=== PATIENT | female | born 1995 | race Hispanic/Latino ===

== ENCOUNTER 2020-02-06 13:12 | Emergency (ER) | payer BC ==
[2020-02-06 13:47] LABS: BASOPHILS % (AUTO) 0.3 % (0.0-5.0); EOSINOPHILS % (AUTO) 0.7 % (0.0-8.0); HEMATOCRIT 37.8 % (36-48); LYMPHOCYTES % (AUTO) 29.5 % (21.0-51.0); MEAN CORPUSCULAR HEMOGLOBIN 30.7 pg (27.0-33.0); MEAN CORPUSCULAR HGB CONC 33.3 g/dL (32.0-36.0); MEAN CORPUSCULAR VOLUME 92.2 fL (79-99); MONOCYTES % (AUTO) 6.9 % (3.0-13.0); NEUTROPHILS % (AUTO) 62.4 % (40.0-77.0); PLATELET COUNT (AUTO) 223 K/uL (130-400); RED CELL DISTRIBUTION WIDTH 12.1 % (11.0-15.5); WHITE BLOOD COUNT (AUTO) 5.8 K/uL (4.8-10.8)
[2020-02-06 13:52] LABS: CREATININE 0.5 mg/dL (0.5-1.5); POTASSIUM 3.4 mmol/L (3.5-5.1)
[2020-02-06 14:06] LABS: APPEARANCE,URINE Clear (CLEAR); BILIRUBIN,URINE Negative (NEGATIVE); COLOR,URINE Yellow (YELLOW); GLUCOSE, URINE (UA) Negative (NEGATIVE); KETONES,URINE 40 mg/dL (NEGATIVE); LEUKOCYTE ESTERASE ,URINE Negative (NEGATIVE); NITRATE,URINE Negative (NEGATIVE); OCCULT BLOOD,URINE Trace (NEGATIVE); PROTEIN,URINE Negative (NEGATIVE)
[2020-02-06 14:25] LABS: BACTERIA,URINE Few /HPF (None Seen); MUCUS,URINE Few LPF (None Seen); RBC,URINE None Seen /HPF (0-1); SQUAMOUS EPITHELIAL CELL,UR 0-2 /HPF (0-2); WBC,URINE 0-1 /HPF (0-1)
[2020-02-06 14:29] LABS: BILIRUBIN,DIRECT 0.2 mg/dL (0.0-0.3); BILIRUBIN,TOTAL 0.5 mg/dL (0.2-1.0); TOTAL PROTEIN, SERUM 7.4 g/dL (6.0-8.3)
[2020-02-06 14:38] LABS: HCG,QUAL RESULT POSITIVE (NEGATIVE)
[2020-02-06 14:46] LABS: AMPHET/METH SCREEN,URINE NEGATIVE (NEGATIVE); BARBITURATE SCREEN, URINE NEGATIVE (NEGATIVE); BENZODIAZEPINES SCREEN,URINE NEGATIVE (NEGATIVE); CANNABINOID SCREEN,URINE NEGATIVE (NEGATIVE); COCAINE SCREEN,URINE NEGATIVE (NEGATIVE); OPIATE SCREEN,URINE NEGATIVE (NEGATIVE); PHENCYCLIDINE SCREEN,URINE NEGATIVE (NEGATIVE)
== END 2020-02-06 15:38 | disposition home or self-care (01) ==
LOC: EDH 13:12
DX: O20.0 Threatened abortion (principal); Z3A.01 Less than 8 weeks gestation of pregnancy
CPT/HCPCS: 36415; 76801; 80048; 80076; 80305; 81001; 81025; 84702; 85025

== ENCOUNTER 2020-08-07 18:43 | Observation (INO) | payer BC ==
[~2020-08-07] VITALS: Ht 160 cm; Wt 64.0 kg
[2020-08-07 19:02] VITALS: BP 103/61
[2020-08-07 19:15] LABS: APPEARANCE,URINE Clear (CLEAR); BILIRUBIN,URINE Negative (NEGATIVE); COLOR,URINE Yellow (YELLOW); GLUCOSE, URINE (UA) Negative (NEGATIVE); KETONES,URINE Trace mg/dL (NEGATIVE); LEUKOCYTE ESTERASE ,URINE Trace (NEGATIVE); NITRATE,URINE Negative (NEGATIVE); OCCULT BLOOD,URINE Negative (NEGATIVE); PROTEIN,URINE Negative (NEGATIVE); UROBILINOGEN,URINE 0.2 mg/dL (0.2-1.0)
[2020-08-07 19:23] LABS: BACTERIA,URINE Few /HPF (None Seen); RBC,URINE 0-1 /HPF (0-1); SQUAMOUS EPITHELIAL CELL,UR Few /HPF (0-2)
[2020-08-07 19:29] LABS: AMPHET/METH SCREEN,URINE NEGATIVE (NEGATIVE); BARBITURATE SCREEN, URINE NEGATIVE (NEGATIVE); BENZODIAZEPINES SCREEN,URINE NEGATIVE (NEGATIVE); CANNABINOID SCREEN,URINE NEGATIVE (NEGATIVE); COCAINE SCREEN,URINE NEGATIVE (NEGATIVE); OPIATE SCREEN,URINE NEGATIVE (NEGATIVE); PHENCYCLIDINE SCREEN,URINE NEGATIVE (NEGATIVE)
[2020-08-07 20:16] LABS: BASOPHILS % (AUTO) 0.4 % (0.0-5.0); EOSINOPHILS % (AUTO) 1.2 % (0.0-8.0); HEMATOCRIT 28.8 % (36-48); LYMPHOCYTES % (AUTO) 25.7 % (21.0-51.0); MEAN CORPUSCULAR HEMOGLOBIN 31.2 pg (27.0-33.0); MEAN CORPUSCULAR VOLUME 91.7 fL (79-99); NEUTROPHILS % (AUTO) 65.5 % (40.0-77.0); PLATELET COUNT (AUTO) 219 K/uL (130-400); RED BLOOD CELL COUNT(AUTO) 3.14 MIL/uL (4.00-5.50); RED CELL DISTRIBUTION WIDTH 12.3 % (11.0-15.5); WHITE BLOOD COUNT (AUTO) 8.5 K/uL (4.8-10.8)
[2020-08-07 20:38] VITALS: BP 99/58
== END 2020-08-07 21:03 | disposition home or self-care (01) ==
LOC: EDH 18:43 → LDH 18:44
PROVIDERS: ADMIT Obstetrics & Gynecology; ATTEND Obstetrics & Gynecology
DX: O26.893 Other specified pregnancy related conditions, third trimester (principal); R10.9 Unspecified abdominal pain; R53.1 Weakness; Z3A.32 32 weeks gestation of pregnancy
CPT/HCPCS: 36415; 59025; 80305; 81001; 84443; 85025; 99283; G0378 ×2

== ENCOUNTER 2020-09-16 02:28 | Observation (INO) | payer OTHER, BC ==
[~2020-09-16] VITALS: Ht 160 cm; Wt 65.8 kg
[2020-09-16] MEDS ORDERED: LACTATED RINGERS 1000ML 1,000 ML IV SCH (02:45)
[2020-09-16] MEDS ORDERED: PREN-196 PO (03:10)
[2020-09-16 03:13] LABS: APPEARANCE,URINE Clear (CLEAR); BILIRUBIN,URINE Negative (NEGATIVE); COLOR,URINE Yellow (YELLOW); GLUCOSE, URINE (UA) Negative (NEGATIVE); KETONES,URINE Negative (NEGATIVE); LEUKOCYTE ESTERASE ,URINE Trace (NEGATIVE); NITRATE,URINE Negative (NEGATIVE); OCCULT BLOOD,URINE Negative (NEGATIVE); PROTEIN,URINE Negative (NEGATIVE)
[2020-09-16 03:21] LABS: BACTERIA,URINE None Seen /HPF (None Seen); RBC,URINE None Seen /HPF (0-1); SQUAMOUS EPITHELIAL CELL,UR Rare /HPF (0-2); WBC,URINE 0-1 /HPF (0-1)
[2020-09-16 03:29] VITALS: BP 104/68
[2020-09-16] MEDS ORDERED: AMPICILLIN 2GM+NS 100ML 100 ML IV SCH (04:00)
[2020-09-16] MEDS ORDERED: LACTATED RINGERS 1000ML 1,000 ML IV PRN (04:00)
[2020-09-16 04:53] LABS: HEMATOCRIT 34.1 % (36-48); MEAN CORPUSCULAR HEMOGLOBIN 30.6 pg (27.0-33.0); MEAN CORPUSCULAR HGB CONC 32.3 g/dL (32.0-36.0); MEAN CORPUSCULAR VOLUME 94.7 fL (79-99); RED BLOOD CELL COUNT(AUTO) 3.6 MIL/uL (4.00-5.50); RED CELL DISTRIBUTION WIDTH 14.6 % (11.0-15.5); WHITE BLOOD COUNT (AUTO) 8.1 K/uL (4.8-10.8)
[2020-09-16] MEDS ORDERED: AMPICILLIN 1GM+NS 50ML 50 ML IV SCH (08:00)
[2020-09-17 15:09] LABS: HEPATITIS Bs ANTIGEN SCREEN P Negative (Negative)
== END 2020-09-16 10:00 | disposition home or self-care (01) ==
LOC: EDH 02:28 → OBSVTOIN 03:03 → LDH 03:03 → INTOOBSV 03:03
PROVIDERS: ADMIT Obstetrics & Gynecology; ATTEND Obstetrics & Gynecology
DX: O62.9 Abnormality of forces of labor, unspecified (principal); Z3A.38 38 weeks gestation of pregnancy
CPT/HCPCS: 36415; 59025; 81001; 85027; 86592; 86850; 86870; 86900; 86901; 87340; 96360; 96361; 99284; G0378 ×7; J7120 ×2